=== PATIENT | female | born 2000 | race Caucasian/White ===

== ENCOUNTER 2022-06-02 11:32 | Emergency (ER) | payer BC, SELFPAY ==
[2022-06-02 11:58] VITALS: BP 111/69; PULSE 75; RESP 16; TEMP 36.4; O2SAT 99
[2022-06-02 12:38] VITALS: BP 111/69; PULSE 75; RESP 16; TEMP 36.4; O2SAT 99
[2022-06-02 13:06] LABS: Add Urine Microscopic? YES; Bilirubin Urine Neg (Negative); Blood Urine Neg (Negative); Glucose Urine UA Norm (Normal); Ketones Urine Negative (Negative); Leukocyte Esterase Urine 1+ (Negative); Nitrate Urine Negative (Negative); Protein Urine Neg (Negative); Specific Gravity, Urine 1.015 (1.005-1.030); Urine Appearance Hazy (CLEAR); Urine Color Straw (Yellow); Urobilinogen Urine Neg (Negative); pH Urine 5 (5-7)
[2022-06-02 13:08] LABS: HCG Qualitative Urine. Negative (Negative)
[2022-06-02 13:09] LABS: Basophils % 0.1 %; Eosinophils # 0.1 10^3/uL (0.0-0.8); Eosinophils % 0.8 %; Hematocrit 43.9 % (37.0-47.0); Lymphocytes # 2.1 10^3/uL (1.5-6.5); Lymphocytes % 28.3 %; Mean Corpuscular HGB Conc 34.2 g/dL (30.0-36.0); Mean Corpuscular Hemoglobin 29.6 pg (28.0-34.0); Mean Corpuscular Volume 86.6 fl (81-99); Mean Platelet Volume 9.5 fL (7.4-10.4); Monocytes # 0.5 10^3/uL (0.2-0.9); Monocytes % 6.8 %; Neutrophils # 4.78 10^3/uL (1.8-8.0); Neutrophils % 63.7 %; Nucleated Red Blood Cells % 0 %; Platelet Count 242 10^3/cmm (130-400); Red Blood Count 5.07 10^6/uL (4.1-5.3); Red Cell Distribution Width 12.3 % (12.1-15.1); White Blood Count 7.5 10^3/uL (4.5-13.0)
[2022-06-02 13:26] LABS: Alanine Aminotransferase 12 U/L (0-33); Albumin Level 4.5 g/dL (3.5-5.2); Alkaline Phosphatase 69 U/L (35-105); Anion Gap 15.4 (5-19); Aspartate Amino Transferase 32 U/L (0-32); Blood Urea Nitrogen 9 mg/dL (6-20); Calcium 9.6 mg/dL (8.5-10.5); Carbon Dioxide 22 mmol/L (22-29); Chloride 104 mmol/L (98-107); Globulin 2.9 g/dL (1.3-4.6); Glomerular Filtration Rate 91.4 mL/min (90-130); Glucose 81 mg/dL (65-115); Osmolality Calculated 282 mOsm/kg (285-295); Potassium 4.4 mmol/L (3.5-5.1); Sodium 137 mmol/L (136-145); Total Bilirubin 1.2 mg/dL (0.15-1.2); Total Protein 7.4 g/dL (6.6-8.7)
--- NOTE | 2022-06-02 13:30 | CTR_ITS ---
PROCEDURE INFORMATION: Exam: CT Abdomen And Pelvis With Contrast Exam date and time: 06/02/2022 1:46 PM Age: 22 years old Clinical indication: Abdominal pain; Localized; Right lower quadrant (rlq) TECHNIQUE: Imaging protocol: Computed tomography of the abdomen and pelvis with contrast. Radiation optimization: All CT scans at this facility use at least one of these dose optimization techniques: automated exposure control; mA and/or kV adjustment per patient size (includes targeted exams where dose is matched to clinical indication); or iterative reconstruction. Contrast material: OMNI 350; Contrast volume: 100 ml; Contrast route: INTRAVENOUS (IV); COMPARISON: No relevant prior studies available. RADIATION DOSE METRICS: Total DLP (mGy-cm): 531.01 FINDINGS: Liver: Normal. No mass. Gallbladder and bile ducts: Normal. No calcified stones. No ductal dilation. Pancreas: Normal. No ductal dilation. Spleen: Normal. No splenomegaly. Adrenal glands: Normal. No mass. Kidneys and ureters: Normal. No hydronephrosis. Stomach and bowel: Unremarkable. No obstruction. No mucosal thickening. Appendix: No evidence of appendicitis. Intraperitoneal space: Unremarkable. No free air. No significant fluid collection. Vasculature: Unremarkable. No abdominal aortic aneurysm. Lymph nodes: Unremarkable. No enlarged lymph nodes. Urinary bladder: Unremarkable as visualized. Reproductive: Unremarkable as visualized. Bones/joints: No acute fracture. Soft tissues: Unremarkable. CT/CT abdomen pelvis w con* [id number] IMPRESSION: No acute findings.
[2022-06-02 13:52] LABS: Add Urine Culture? Yes; Bacteria Urine 3+ /hpf; Mucus Urine 2+ /hpf; RBC Urine 0-4 /hpf (0-2)
[2022-06-02] MEDS: iohexol 350 mg/mL 500 mL Btl (per mL) IV (13:55)
[2022-06-02 13:57] VITALS: BP 111/69; PULSE 75; RESP 16; TEMP 36.4; O2SAT 99
--- NOTE | 2022-06-02 15:14 | USR_ITS ---
PROCEDURE INFORMATION: Exam: US Pelvis, Transvaginal Exam date and time: 06/02/2022 3:50 PM Age: 22 years old Clinical indication: Pelvic pain; Additional info: R pelvic pain TECHNIQUE: Imaging protocol: Real-time transvaginal pelvic ultrasound with image documentation. Transvaginal imaging was used for better evaluation of the endometrium, adnexa, and/or cervix. COMPARISON: CT abdomen pelvis w con* [id number] 06/02/2022 1:46 PM FINDINGS: Uterus: The uterus measures 6.0 x 1.7 x 2.4 cm. Trace fluid noted within the cervix. No uterine mass. Prominent uterine vasculature noted along the anterior lower uterine segment. Endometrial stripe thickness is within normal limits measuring 3 mm. Right ovary/adnexa: The right ovary measures 2.6 x 2.4 x 1.8 cm. Follicle noted measuring up to 0.8 cm. No suspicious ovarian mass. Normal ovarian blood flow. Left ovary/adnexa: Left ovary measures 2.0 x 1.8 x 1.4 cm. Follicle noted measuring up to 1.2 cm. No suspicious ovarian mass. Normal ovarian blood flow. Intraperitoneal space: No free fluid. US/US pelvic with transvaginal IMPRESSION: No acute findings.
--- NOTE | 2022-06-02 15:42 | PC.PHAR ---
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
[2022-06-02 17:04] VITALS: BP 122/73; PULSE 68; RESP 18; TEMP 36.4; O2SAT 99
--- NOTE | 2022-06-02 21:41 | W.ED.ABDPA2 ---
HPI - Abdominal Pain General: Chief Complaint: Abdominal Pain Stated Complaint: abd pains Time Seen by Provider: 06/02/22 12:09 History of Present Illness: 22 yo female patient presents to ER with RLQ pain x 1 day. Pt denies any n/v/d or fever. Pt deneis any urinary symptoms. Pt denies any other complaints. Pt denies any PMH. Associated Symptoms: Denies change in bowel habits, chills, constipation, GI cramping, diarrhea, dysuria, fever(s), hematuria, hematemesis, nausea, syncope and vomiting Review of Systems Const: Denies: fever(s), chills, body aches, change in appetite, change in weight, fatigue, malaise or diaphoresis Eyes: Denies: change in vision, blurry vision, blind spots, photophobia, eye discomfort, eye discharge, eye redness, floaters or seeing flashes ENMT: Denies: throat pain, uvular edema, enlarged tonsils, odynophagia, hoarseness, mouth pain, swelling of lips/tongue, oral sores, bleeding gums, dental pain, dry mouth, ear or mastoid pain, ear discharge, change in hearing, tinnitus, disequilibrium, nasal discharge, nasal congestion, post nasal drip or sinus pain Card: Denies: chest pain, palpitations, irregular heart rhythm, edema, swelling of feet/ankles, lightheadedness, syncope, pre-syncope, dyspnea on exertion, orthopnea, leg pain with exertion or acrocyanosis Resp: Denies: dyspnea, productive cough, non-productive cough, wheezing, stridor, pain on inspiration, change in phlegm color, hemoptysis or chest congestion GI: Denies: nausea, vomiting, hematemesis, dysphagia, diarrhea, constipation, GI cramping, change in bowel habits or rectal pain : Denies: flank pain, difficulty voiding, dysuria, urinary frequency, urinary urgency, urinary hesitancy or hematuria Musc: Denies: neck pain, back pain, extremity pain, extremity swelling, joint pain, joint swelling, joint redness, joint warmth or deformity Skin/Breast: Denies: rash, pruritus, erythema, sores, new lesions, changes in skin color or dry skin Neuro: Denies: headache(s), numbness in extremities, weakness in extremities, sensory changes, lack of coordination, difficulty walking, frequent falls, dizziness, vertigo, confusion, behavioral changes, Slurred speech present, difficulty communicating thoughts or seizure-like activity Psych: Denies: anxiety, depression, suicidal ideation or homicidal ideation Endo: Denies: polyuria, polydipsia, tired all the time, cold intolerance, excessive sweating, flushing, hot flashes or heat intolerance Dean/Lymph: Denies: easy bruising, easy bleeding, petechiae, purpura, enlarged lymph nodes or tender lymph nodes All/Imm: Denies: urticaria, throat swelling, tongue swelling, facial swelling, acute wheezing or itchy eyes Physical Exam Const: COMMON NORMALS: no acute distress, patient oriented x3, healthy appearing, alert and well nourished GENERAL APPEARANCE: cooperative, comfortable, well kempt and well developed; not ill appearing ORIENTATION/CONSCIOUSNESS: Yes awake, Yes oriented to person, Yes oriented to place and Yes oriented to time HENMT: COMMON NORMALS: normocephalic, atraumatic, hearing grossly normal bilaterally, external ears normal, EAC's normal, TM's normal bilaterally, Normal external nose present, Normal nasal mucous membranes and turbinates present and moist oral mucous membranes HEAD & SCALP: normal to inspection, normocephalic and atraumatic FACE & SINUS: normal facial exam, sinuses nontender and face symmetric NOSE: Normal external nose present, Normal nares present, Normal nasal mucous membranes and turbinates present, No nasal discharge present and Abnormal external nose present EXTERNAL EAR: Yes external ears normal and Yes mastoids normal EXTERNAL AUDITORY CANAL: EAC's normal TYMPANIC MEMBRANE: TM's normal bilaterally MOUTH: Normal oral and palatal mucosa present, lip normal, tongue normal and Normal salivary glands and ducts present THROAT: no uvular edema Eye: COMMON NORMALS: Equal, round and reactive pupils present, EOMs intact bilaterally, conjunctivae normal, no scleral icterus and no papilledema GENERAL EYE: appearance normal, both eyes and all related structures EYELID: eyelids normal CONJUNCTIVA: Yes conjunctivae normal SCLERA: sclerae normal CORNEA: Yes corneas normal PUPIL: Yes Equal, round and reactive pupils present DIRECT OPHTHALMOSCOPY: Yes no papilledema Neck/C-Spine: COMMON NORMALS: full ROM, no lymphadenopathy, supple, no meningeal signs, no JVD and Thyroid normal GENERAL: Yes normal visual inspection and Yes trachea midline THYROID: Thyroid normal CERVICAL SPINE: Yes cervical ROM normal Lymph: LYMPHATIC: no lymphadenopathy noted and no lymphedema noted Chest: COMMONS NORMALS: normal inspection of the chest and normal palpation of entire chest wall Resp: COMMON NORMALS: normal respiratory effort, No retractions, No use of accessory muscles and clear to auscultation bilaterally EFFORT & INSPECTION: Yes able to speak in complete sentences and Yes symmetric chest movement AUSCULTATION: clear to auscultation bilaterally Cardio: COMMON NORMALS: no JVD, regular rate and regular rhythm RATE: regular rate RHYTHM: regular rhythm GI: COMMON NORMALS: Normal to inspection, nondistended, normoactive bowel sounds present, Soft to palpation, No hepatosplenomegaly present, no masses and no bruits INSPECTION: Yes normal to inspection AUSCULTATION: Yes normoactive bowel sounds PALPATION: Yes Soft to palpation and Yes No hepatosplenomegaly present PERCUSSION: normal to percussion RECTAL EXAM: deferred : COMMON NORMALS: Yes no CVA tenderness, Yes normal external appearance, Yes normal appearance of the vagina, Yes normal appearance of the cervix, Yes normal bimanual exam, Yes No adnexal tenderness and Yes no masses BLADDER/KIDNEY EXAM: Yes no CVA tenderness BIMANUAL EXAM - VAGINA & UTERUS: Yes normal bimanual exam Back/Pelvis: COMMON NORMALS: no CVA tenderness, thoracic and lumbar spine normal to inspection, no thoracic nor lumbar tenderness, thoraco-lumbar ROM normal and straight leg raise negative bilaterally THORACIC SPINE/UPPER BACK: Yes normal to inspection LUMBAR SPINE/LOWER BACK: Yes normal to inspection Extremity: COMMON NORMALS: normal to inspection, full ROM and capillary refill normal GENERAL: Yes normal exam except as noted Neuro: COMMON NORMALS: patient oriented x3, CN's II-XII intact bilaterally, moves all extremities, no focal motor deficits, no sensory deficits noted, deep tendon reflexes 2+ bilaterally and gait normal SENSORIUM/ORIENTATION: Yes alert, Yes oriented to person, Yes oriented to place and Yes oriented to time MENINGEAL SIGNS: Yes no meningeal signs CRANIAL NERVES: Yes CN normal except as noted SPEECH: speech normal GAIT: Yes Normal gait present SENSORY EXAM: Yes extremities MOTOR EXAM: 5/5 motor strength present throughout Psych: COMMON NORMALS: mental status grossly normal, Normal thought process present, cooperative, normal affect, speech normal, activity/motor behavior normal, denies hallucinations, denies homicidal ideation and denies suicidal ideation APPEARANCE: Yes grossly normal and Yes well kempt ATTITUDE: Yes calm ACTIVITY/MOTOR BEHAVIOR: Yes appropriate eye contact SPEECH: Yes normal speech THOUGHT PROCESS: Normal thought process present THOUGHT CONTENT: Yes Normal thought content present ATTENTION/CONCENTRATION: Yes attention grossly intact MEMORY/COGNITION: Yes memory grossly intact INSIGHT: Good insight present (Psych) JUDGEMENT: Good judgement present (Psych) Skin: COMMON NORMALS: no rashes or lesions noted, no wounds, turgor normal, no jaundice, no petechiae and no mottling GENERAL SKIN EXAM: no rashes or lesions noted and turgor normal Course Vital Signs: Vital signs: Vital Signs Temperature 97.5 F L 06/02/22 17:04 Pulse Rate 68 06/02/22 17:04 Respiratory Rate 18 06/02/22 17:04 Blood Pressure 122/73 06/02/22 17:04 Pulse Oximetry 99 06/02/22 17:04 Oxygen Delivery Me thod 06/02/22 13:57 MDM - Abdominal Pain Medical Decision Making Patient is well apearing non toxic and in no acute distress. 22 yo female patient presents to ER with RLQ pain x 1 day. Pt denies any n/v/d or fever. Pt deneis any urinary symptoms. Pt denies any other complaints. Pt denies any PMH. labs reveal no concerning symptoms. CT abd/pelvis reveals no acute fings. US pelic reveals no acute findings. I advised patient to return immediately with any worsening of pain or concerns but at this point I do not feel any further testing is warranted at this emergent time Differential Diagnosis Likely abdominal pain, acute appendicitis, calculus of kidney, constipation, diverticulitis, endometriosis, gastroenteritis, pancreatitis and small bowel obstruction Lab Data 06/02/22 12:55 06/02/22 12:55 Labs/Radiology: Radiology Impressions Abdomen/Pelvis CT 06/02/22 13:30 IMPRESSION: No acute findings. Pelvic/Transvag US 06/02/22 15:14 IMPRESSION: No acute findings. Laboratory Results WBC 7.5 10^3/uL (4.5-13.0) 06/02/22 12:55 RBC 5.07 10^6/uL (4.1-5.3) 06/02/22 12:55 Hgb 15.0 g/dL (11.5-15.3) 06/02/22 12:55 Hct 43.9 % (37.0-47.0) 06/02/22 12:55 MCV 86.6 fl (81-99) 06/02/22 12:55 MCH 29.6 pg (28.0-34.0) 06/02/22 12:55 MCHC 34.2 g/dL (30.0-36.0) 06/02/22 12:55 RDW 12.3 % (12.1-15.1) 06/02/22 12:55 Plt Count 242 10^3/cmm (130-400) 06/02/22 12:55 MPV 9.5 fL (7.4-10.4) 06/02/22 12:55 Neut % (Auto) 63.7 % 06/02/22 12:55 Lymph % (Auto) 28.3 % 06/02/22 12:55 [place] % (Auto) 6.8 % 06/02/22 12:55 Eos % (Auto) 0.8 % 06/02/22 12:55 Baso % (Auto) 0.1 % 06/02/22 12:55 Neut # (Auto) 4.78 10^3/uL (1.8-8.0) 06/02/22 12:55 Lymph # (Auto) 2.1 10^3/uL (1.5-6.5) 06/02/22 12:55 [place] # (Auto) 0.5 10^3/uL (0.2-0.9) 06/02/22 12:55 Eos # (Auto) 0.1 10^3/uL (0.0-0.8) 06/02/22 12:55 Baso # (Auto) 0.0 10^3/uL (0.0-0.1) 06/02/22 12:55 Nucleated RBC % (auto) 0 % 06/02/22 12:55 Nucleated RBCs # 0.0 /100WBC 06/02/22 12:55 Sodium 137 mmol/L (136-145) 06/02/22 12:55 Potassium 4.4 mmol/L (3.5-5.1) 06/02/22 12:55 Chloride 104 mmol/L (98-107) 06/02/22 12:55 Carbon Dioxide 22 mmol/L (22-29) 06/02/22 12:55 Anion Gap 15.4 (5-19) 06/02/22 12:55 BUN 9 mg/dL (6-20) 06/02/22 12:55 Creatinine 0.8 mg/dL (0.5-0.9) 06/02/22 12:55 GFR Calculation 91.4 mL/min (90-130) 06/02/22 12:55 Glucose 81 mg/dL (65-115) 06/02/22 12:55 Calculated Osmolality 282 mOsm/kg (285-295) L 06/02/22 12:55 Calcium 9.6 mg/dL (8.5-10.5) 06/02/22 12:55 Total Bilirubin 1.2 mg/dL (0.15-1.2) 06/02/22 12:55 AST 32 U/L (0-32) 06/02/22 12:55 ALT 12 U/L (0-33) 06/02/22 12:55 Alkaline Phosphatase 69 U/L (35-105) 06/02/22 12:55 Total Protein 7.4 g/dL (6.6-8.7) 06/02/22 12:55 Albumin 4.5 g/dL (3.5-5.2) 06/02/22 12:55 Globulin 2.9 g/dL (1.3-4.6) 06/02/22 12:55 HCG, Qual Negative (Negative) 06/02/22 12:35 Urine Color Straw (Yellow) 06/02/22 12:35 Urine Appearance Hazy (CLEAR) A 06/02/22 12:35 Urine pH 5 (5-7) 06/02/22 12:35 Ur Specific [place] 1.015 (1.005-1.030) 06/02/22 12:35 Urine Protein Neg (Negative) 06/02/22 12:35 Urine Glucose (UA) Norm (Normal) 06/02/22 12:35 Urine Ketones Negative (Negative) 06/02/22 12:35 Urine Blood Neg (Negative) 06/02/22 12:35 Urine Nitrate Negative (Negative) 06/02/22 12:35 Urine Bilirubin Neg (Negative) 06/02/22 12:35 Urine Urobilinogen Neg mg/dL (Negative) 06/02/22 12:35 Ur Leukocyte Esterase 1+ (Negative) H 06/02/22 12:35 Urine RBC 0-4 /hpf (0-2) H 06/02/22 12:35 Urine WBC 5-10 /hpf (0-5) H 06/02/22 12:35 Ur Squamous Epith Cells 5-10 /hpf (0-5) H 06/02/22 12:35 Amorphous Sediment Not Reportable 06/02/22 12:35 Urine Bacteria 3+ /hpf (NONE) H 06/02/22 12:35 Urine Mucus 2+ /hpf 06/02/22 12:35 Discharge Plan Discharge Patient Disposition: Home Clinical Impression: Abdominal pain Condition: Stable Prescriptions: No Action Depo-Provera 150 mg/mL Syringe 150 mg IM [id number] Discharge Orders: Discharge ED (Routine); Ordered 06/02/22 Ordered By: Sarahi Gonzales Discharge Diet: Advance as tolerated Discharge Activity: Increase activity as tolerated Patient Instructions: Abdominal Pain (ED), Opioid Safety, Pain Management Activity Restrictions/Additional Instructions: Return to ER with any worsening of pain Coding Level of Care Code ED [employer]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
== END 2022-06-02 17:00 | disposition home or self-care (01) ==
PROVIDERS: Emergency Provider Registered Nurse
DX: R10.31 Right lower quadrant pain (principal)
CPT/HCPCS: 74177; 76830; 76856; 80053; 81001; 81025; 85025; 87086; 99285; Q9967